=== PATIENT | male | born 1980 | race Caucasian/White ===

== ENCOUNTER 2017-11-29 10:34 | Outpatient (CLI) | payer BC ==
--- NOTE | 2017-11-29 12:27 | MRI ---
MRI LUMBAR SPINE WITHOUT CONTRAST: COMPARISON: 07/28/16. HISTORY: Lumbar radiculopathy. TECHNIQUE: MRI lumbar spine is performed without intravenous Gadolinium administration. Multisequential, multip lanar imaging is performed. FINDINGS: Heterogeneous marrow signal intensity of the lumbar vertebrae due to senescent change. Vertebral bod y height is maintained. There is no fracture. No significant STIR hyperintensity to suggest vertebr al body edema or ligamentous injury. Appropriate signal intensity of the visualized solid organs. Symmetric signal intensity of the psoas muscles. Conus medullaris terminates at the inferior aspect of L1. T12-L1: Adequate disk hydration. No significant central canal stenosis or foraminal narrowing. L1-L2: Adequate disk hydration. No significant central canal stenosis or foraminal narrowing. L2-L3: Adequate disk hydration. No significant central canal stenosis. Foramen are patent. L3-L4: Adequate disk hydration. No significant central canal stenosis. Foramen are patent. L4-L5: Minimal loss of disk space height. The disk is still adequately hydrated. No significant po sterior disk abnormality. No significant central canal stenosis. Mild bilateral neural foraminal na rrowing. L5-S1: Mild to moderate loss of disk space height. There is a central/left subarticular disk protru ava measuring 5 mm. There is mild superior disk extrusion into the left subarticular zone. Disk ma terial abuts and partially obscures the traversing left S1 nerve root. The right subarticular zone i s unremarkable. Mild stenosis of the thecal sac. Mild right and mild to moderate left neural forami nal narrowing. When compared to the previous examination, the degree of disk protrusion into the lef t subarticular zone has slightly decreased. Nevertheless, there continues to be mass effect upon the traversing left S1 nerve root. IMPRESSION: Degenerative changes at L5-S1 as described above. The overall degree of disk herniation and extrusio n has decreased. Nevertheless, there is mass effect upon the traversing left S1 nerve root. POS: YEYO
== END 2017-11-29 10:35 | disposition home or self-care (01) ==
LOC: TBSIIMAG 10:34
PROVIDERS: ATTEND Neurological Surgery
DX: M47.26 Other spondylosis with radiculopathy, lumbar region (principal); M51.16 Intervertebral disc disorders with radiculopathy, lumbar region
CPT/HCPCS: 72148

== ENCOUNTER 2018-03-06 06:40 | Day surgery (SDC) | payer BC ==
[2018-03-03 08:44] VITALS: BMI 24.3
[2018-03-06] MEDS ORDERED: Fentanyl 100 MCG/2 ML VIAL ONE ×4 (07:04→15:44)
[2018-03-06] MEDS ORDERED: CEFAZOLIN 2 GM/50 ML BAG ONE (07:20)
[2018-03-06 07:23] LABS: Mean Corpuscular HGB CONC 35.4 g/dL (32.0-36.0); Mean Corpuscular Hemoglobin 33.4 pg (27.0-31.0); Mean Corpuscular Volume 94.5 fL (78.0-98.0); Platelet Count 159 thou/uL (130-400); RBC Distribution Width 11.8 % (11.5-14.5); Red Blood Cell (RBC) Count 4.48 mill/uL (4.70-6.10); White Blood Cell (WBC) Count 4.3 thou/uL (4.8-10.8)
[2018-03-06 07:41] LABS: Anion Gap 12 mmol/L (10-20); BUN (Urea Nitrogen) 11 mg/dL (8.9-20.6); Calc. Creatinine Clearance 99 mL/min (70-130); Calcium 9.4 mg/dL (7.8-10.44); Carbon Dioxide 27 mmol/L (22-29); Chloride 105 mmol/L (98-107); Estimated GFR-MDRD 80; Glucose 95 mg/dL (70-105); Sodium 140 mmol/L (136-145)
--- NOTE | 2018-03-06 12:04 | EKG ---
Test Reason : PREOP Blood Pressure : / mmHG Vent. Rate : 071 BPM Atrial Rate : 071 BPM P-R Int : 148 ms QRS Dur : 088 ms QT Int : 402 ms P-R-T Axes : 070 073 048 degrees QTc Int : 436 ms Normal sinus rhythm Normal ECG No previous ECGs available Confirmed by ALEXANDRA YATES ([id number]) on 03/06/2018 12:03:51 PM Referred By: DARA Confirmed By:ALEXANDRA YATES
[2018-03-06] MEDS ORDERED: Midazolam HCl 2 mg/2 ml Vial ONE (13:31)
[2018-03-06] MEDS ORDERED: Ondansetron HCl/PF 4 MG/2 ML Vial IVP PRN (15:02)
[2018-03-06] MEDS ORDERED: Promethazine HCl 25 MG/ML VIAL SLOW IVP PRN (15:02)
[2018-03-06] MEDS ORDERED: Promethazine HCl 25 MG/ML VIAL IM PRN (15:02)
[2018-03-06] MEDS ORDERED: HYDROcodone/Acetaminophen 10/325 mg Tablet PO PRN (15:23)
[2018-03-06] MEDS ORDERED: Morphine 4 MG/ML VIAL SLOW IVP PRN (15:23)
[2018-03-06] MEDS ORDERED: Milk Of Magnesia 30 ML UDCUP PO PRN (15:23)
[2018-03-06] MEDS ORDERED: Prochlorperazine 10 MG/2 ML VIAL IM PRN (15:23)
[2018-03-06] MEDS ORDERED: Mag-Al 1200 mg/1200 mg/30 ML UDCUP PO PRN (15:23)
[2018-03-06] MEDS ORDERED: diphenhydrAMINE 50 MG/ML VIAL IVP PRN (15:23)
[2018-03-06] MEDS ORDERED: diphenhydrAMINE 25 MG CAP PO PRN (15:23)
[2018-03-06] MEDS ORDERED: traMADol HCl 50 MG TAB PO PRN ×2 (15:23)
[2018-03-06] MEDS ORDERED: Ondansetron PF 4 MG/2 ML Vial IVP PRN (15:25)
[2018-03-06] MEDS ORDERED: HYDROmorphone 2 MG/ML VIAL ONE (15:59)
--- NOTE | 2018-03-06 16:10 | OP ---
DATE OF PROCEDURE: 03/06/2018 MITIGATION SUPERVISOR: Luis. PROCEDURE PERFORMED: Left L5-S1 microdiskectomy. DESCRIPTION OF PROCEDURE: The patient was brought to the operating room and intubated. He was rolled in a prone position on gel flat chest rolls. An incision was made exposing L5 and S1 on the left, and the level was confirmed by x-ray. We performed left L5-S1 hemilaminectomy, removed the ligament, and found largely calcified disk herniation pinching left S1 nerve root. This was debrided multiple fragments and a complete decompression was achieved. The wound was extensively irrigated and adequate hemostasis was secured. Vancomycin powder was applied, and the wound was then closed in anatomic layers. Job ID: [id number]
[2018-03-06] MEDS: Sodium Chloride 0.9% 1,000 ML IV SCH (17:30)
[2018-03-06] MEDS: HYDROcodone/Acetaminophen 10/325 mg Tablet PO PRN (21:16)
[2018-03-06] MEDS: tiZANidine HCl 4 MG TAB PO PRN (21:17)
[2018-03-07] MEDS: HYDROcodone/Acetaminophen 10/325 mg Tablet PO PRN (05:45)
[2018-03-07] MEDS: tiZANidine HCl 4 MG TAB PO PRN (05:47)
[2018-03-07] MEDS: Sodium Chloride 0.9% 1,000 ML IV SCH (05:52)
--- NOTE | 2018-03-07 07:08 | DIS ---
DATE OF ADMISSION: 03/06/2018 DATE OF DISCHARGE: 03/07/2018 HOSPITAL COURSE: The patient is a 38-year-old male status post left L5-S1 microdiscectomy for a herniated nucleus pulposus. Following his surgery, he was transitioned to the floor where his pain was well-controlled with p.o. medications, he was tolerating a regular diet, and voiding appropriately. He has been healthy, ambulating throughout the department without difficulty. He is sitting comfortably in the bed, in no acute distress. Free active range of motion, 5/5 extremity strength. No focal motor weakness. No reflex asymmetry. Sensation is intact to light touch. Dressing is dry. PLAN: We will plan to dismiss the patient to home. He can resume his home medications and follow up with us in two weeks. I have provided with him prescriptions for [place] and Zanaflex and his home instructions. Job ID: [id number]
[2018-03-07 07:59] VITALS: BP 104/73; TEMP 97.2
[2018-03-07] MEDS ORDERED: valACYclovir 500 MG TAB PO SCH (09:00)
[2018-03-07] MEDS ORDERED: Bupropion 150 MG XL TAB PO SCH (09:00)
[2018-03-07] MEDS ORDERED: ALPRAZolam 0.25 MG TAB PO SCH (21:00)
== END 2018-03-07 08:50 | disposition home or self-care (01) ==
LOC: SDC 06:40 → T4-A 09:10 → SDC 03-07 08:50
PROVIDERS: ATTEND Neurological Surgery
PROC: 0SB20ZZ Excision of Lumbar Vertebral Disc, Open Approach (ICD-10-PCS; principal; 2018-03-06)
DX: M51.27 Other intervertebral disc displacement, lumbosacral region (principal); Z79.899 Other long term (current) drug therapy
CPT/HCPCS: 36415; 76001; 80048; 85027; 93005; 93010; 96374; J1170; J2250; J3010; J3370